=== PATIENT | male | born 2000 | race Caucasian/White ===

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

== ENCOUNTER → 2019-10-30 | Outpatient (CLI) | payer SELFPAY | LOC: LAB 13:43 | DX: K21.9 Gastro-esophageal reflux disease without esophagitis (principal) ==

== ENCOUNTER 2019-11-06 10:30 | Emergency (ER) | payer SELFPAY ==
[~2019-11-06] VITALS: Ht 177.8 cm; Wt 70.5 kg
[2019-11-06] MEDS ORDERED: GOOD NEIGHBOR P20 M1 PO (10:57)
[2019-11-06] MEDS ORDERED: ZOFRAN4 M2 PO (10:57)
[2019-11-06 11:22] LABS: HEMATOCRIT 42.9 % (36.0-47.0); MEAN CELL VOLUME 91 fl (78-95); MEAN CORPUSCULAR HEMOGLOBIN 32 pg (26-32); MEAN CORPUSCULAR HGB CONC 35 g/dL (33-37); MEAN PLATELET VOLUME 8.3 fl (7.4-10.4); PLATELET COUNT 190 K/mm3 (130-400); RED BLOOD COUNT 4.72 M/mm3 (4.20-5.60); RED CELL DISTRIBUTION WIDTH 12.2 % (11.5-14.5); WHITE BLOOD COUNT 4.7 K/mm3 (4.8-10.8)
[2019-11-06 11:30] LABS: LYMPHOCYTE 34 % (20-51); MONOCYTE 16 % (1-10); NEUTROPHILS 49 % (42-75)
[2019-11-06 11:32] LABS: ALBUMIN 4.5 g/dL (3.5-5.0)
[2019-11-06 11:33] LABS: POTASSIUM 4.1 mmol/L (3.5-5.1)
[2019-11-06 11:34] LABS: CALCIUM 8.9 mg/dL (8.3-10.5)
[2019-11-06 11:35] LABS: TOTAL PROTEIN 7.2 g/dL (6.4-8.3)
[2019-11-06 11:37] LABS: TOTAL BILIRUBIN 0.4 mg/dL (0.2-1.2)
[2019-11-06] MEDS ORDERED: PHENERGAN 25 TA25 MG PO (12:47)
[2019-11-06 13:03] VITALS: BP 152/61
== END 2019-11-06 13:16 | disposition home or self-care (01) ==
LOC: ED 10:30
PROVIDERS: Nurse Practitioner Primary Care
DX: A08.4 Viral intestinal infection, unspecified (principal); K21.9 Gastro-esophageal reflux disease without esophagitis; J45.909 Unspecified asthma, uncomplicated; F17.210 Nicotine dependence, cigarettes, uncomplicated
CPT/HCPCS: J2405; J7030